=== PATIENT | female | born 2000 | race Two or more races ===

== ENCOUNTER 2021-08-18 08:44 | Emergency (ER) | payer SELFPAY ==
[~2021-08-18] VITALS: Ht 167.6 cm; Wt 56.7 kg
--- NOTE | 2021-08-18 09:03 | NUR ---
covid swab done and sent to the lab
--- NOTE | 2021-08-18 09:10 | NUR ---
DR VAIL AT THE BEDSIDE
--- NOTE | 2021-08-18 09:11 | NUR ---
PHLEBATOMIST AT THE BEDSIDE
--- NOTE | 2021-08-18 09:13 | NUR ---
X-RAY TECH AT THE BEDSIDE
[2021-08-18 09:16] LABS: BASOPHILS % (AUTO) 0.8 % (0.0-2.0); EOSINOPHILS % (AUTO) 1.3 % (0.0-6.0); HEMATOCRIT 37 % (33-45); HEMOGLOBIN 12.2 g/dL (11.5-14.8); LYMPHOCYTES # (AUTO) 3.1 K/uL (0.8-4.8); MEAN CORPUSCULAR HGB CONC 34 g/dl (31.0-36.0); MEAN CORPUSCULAR VOLUME 93 fL (82-100); MONOCYTES # (AUTO) 0.5 K/uL (0.1-1.30); MONOCYTES % (AUTO) 7.6 % (2.0-12.0); NEUTROPHILS # (AUTO) 2.4 K/uL (1.8-8.9); NEUTROPHILS % (AUTO) 39.3 % (43.0-81.0); PLATELET COUNT (AUTO) 302 K/uL (150-450); RED BLOOD CELL COUNT(AUTO) 3.95 MIL/uL (4.0-5.2)
--- NOTE | 2021-08-18 09:17 | NUR ---
THE PATIENT IS TAKEN TO CT
--- NOTE | 2021-08-18 09:23 | NUR ---
THE PATIENT IS BACK FROM CT
[2021-08-18 09:25] LABS: CALCIUM, SERUM 8.9 mg/dL (8.5-10.1); CARBON DIOXIDE 27 mmol/L (21-32); CHLORIDE 107 mmol/L (98-107); CREATININE 0.8 mg/dL (0.6-1.3); GLUCOSE 121 mg/dL (74-106); POTASSIUM 3.1 mmol/L (3.5-5.1); SODIUM SERUM 144 mmol/L (136-145); UREA NITROGEN, BLOOD 10 mg/dL (7-18)
[2021-08-18 09:31] LABS: ACETAMINOPHEN < 0 ug/ml (10-30); ALANINE AMINOTRANSFERASE 22 U/L (12-78); ALBUMIN 3.8 g/dL (3.4-5.0); ALCOHOL, BLOOD < 3 mg/dL (0-0); ALKALINE PHOSPHATASE 98 U/L (46-116); ASPARTATE AMINOTRANSFERASE 22 U/L (15-37); BILIRUBIN,DIRECT 0.2 mg/dL (0.0-0.2); BILIRUBIN,TOTAL 0.9 mg/dL (0.2-1.0); TOTAL PROTEIN, SERUM 7.9 g/dL (6.4-8.2)
--- NOTE | 2021-08-18 10:32 | NUR ---
URINE COLLECTED AND SENT TO LAB
--- NOTE | 2021-08-18 10:53 | NUR ---
The patient is sleeping. Breathing even and unlabored. The patient is in no apparent distress. Will continue to monitor the patient.
[2021-08-18 10:55] LABS: LYMPHOCYTES % (MANUAL) 54 % (16-48); NEUTROPHILS % (MANUAL) 46 (42-76)
[2021-08-18 11:50] LABS: BILIRUBIN,URINE NEGATIVE (NEGATIVE); COLOR,URINE YELLOW (YELLOW); LEUKOCYTE ESTERASE ,URINE NEGATIVE (NEGATIVE); NITRITE, URINE NEGATIVE (NEGATIVE); PROTEIN,URINE 30 mg/dl (NEGATIVE); UGLUCOSE NEGATIVE (NEGATIVE); UROBILINOGEN,URINE 0.2 EU/dL (0.2)
[2021-08-18 12:06] LABS: BACTERIA,URINE Few /HPF (None Seen); SQUAMOUS EPITHELIAL CELL,UR Few /HPF (None Seen)
--- NOTE | 2021-08-18 14:34 | NUR ---
Social service consult: Social service consult requested for bizzare behavior and possible homelessness. SW met pt. at bedside. The patient is currently sleeping and did not arousable to verbal cues. The pt. appears disheveled. structural steel worker apprentice informed nursing that SS will remain available as needed.
[2021-08-18] MEDS ORDERED: CEPHALEXIN MONOHYDRATE 500 MG CAPSULE PO SCH (17:00)
--- NOTE | 2021-08-18 18:02 | NUR ---
THE PATIENT SLEEPING IN ER BED #15. IN NO APPARENT DISTRESS. BREATHING EVEN AND UNLABORED. WILL CONTINUE TO MONITOR THE PATIENT.
--- NOTE | 2021-08-18 19:21 | NUR ---
REPORT GIVEN TO NURSE WORLEY
[2021-08-19] MEDS ORDERED: CEPHALEXIN MONOHYDRATE 500 MG CAPSULE PO ONE (01:44)
[2021-08-19 02:08] VITALS: BP 135/77
--- NOTE | 2021-08-19 02:08 | NUR ---
Patient discharged to home in stable condition. Written and verbal after care instructions given. Patient verbalizes understanding of instruction.
== END 2021-08-19 02:09 | disposition home or self-care (01) ==
LOC: ER 08:46 → EDBD 08:46 → ER 08-19 02:09
DX: F15.159 Other stimulant abuse with stimulant-induced psychotic disorder, unspecified (principal); F16.10 Hallucinogen abuse, uncomplicated; N39.0 Urinary tract infection, site not specified; F12.10 Cannabis abuse, uncomplicated; R00.0 Tachycardia, unspecified; E87.6 Hypokalemia; Z20.822 Contact with and (suspected) exposure to COVID-19
CPT/HCPCS: 36415; 70450; 71045; 80048; 80076; 80143; 80307; 80320; 81001; 85007; 85025; 87086; 87426; 99285; C9803; G0480